=== PATIENT | female | born 1980 | race Caucasian/White ===

== ENCOUNTER 2017-05-17 13:53 | Emergency (ER) | payer OTHER, SELFPAY ==
[2017-05-17] MEDS ORDERED: ISOVUE-370 76%-LOCM 1 ML ONE (13:57)
[2017-05-17 14:51] LABS: BHCG - Serum Negative (NEGATIVE); Pregs Control Background? CLEAR/WHITE (CLR/WHITE); Pregs Control Bar Appear? YES (CONTROL BAR)
[2017-05-17 14:52] LABS: #Lymphocytes 1.7 thou/uL (1.20-3.40); #Monocytes 0.5 thou/uL (0.11-0.59); #Neutrophils 2.5 thou/uL (1.40-6.50); %Basophils 0.4 % (0.0-1.0); %Eosinophils 0.6 % (0.0-10.0); %Lymphocytes 35.5 % (21.0-51.0); %Monocytes 9.6 % (0.0-10.0); Hemoglobin 13.4 g/dL (12.0-16.0); Mean Corpuscular HGB CONC 34.5 g/dL (32.0-36.0); Mean Corpuscular Hemoglobin 29.7 pg (27.0-31.0); Mean Corpuscular Volume 86.1 fl (81.0-99.0); Mean Platelet Volume 8.2 fL (7.4-10.4); Platelet Count 245 thou/uL (130-400); RBC Distribution Width 11.7 % (11.5-14.5); White Blood Cell (WBC) Count 4.7 thou/uL (4.8-10.8)
[2017-05-17 14:58] LABS: ALT (SGPT) 9 U/L (8-55); AST (SGOT) 11 U/L (5-34); Albumin 4.2 g/dL (3.5-5.0); Alkaline Phosphatase 60 U/L (40-150); Anion Gap 12 mmol/L (10-20); BUN (Urea Nitrogen) 16 mg/dL (7.0-18.7); Bilirubin, Total 0.2 mg/dL (0.2-1.2); CK (CPK) 20 U/L (29-168); Calc. Creatinine Clearance 0 mL/min (70-130); Calcium 9.5 mg/dL (7.8-10.44); Carbon Dioxide 24 mmol/L (22-29); Chloride 106 mmol/L (98-107); Estimated GFR-MDRD 75; Globulin 2.9 g/dL (2.4-3.5); Glucose 94 mg/dL (70-105); Lipase 26 U/L (8-78); Potassium 3.8 mmol/L (3.5-5.1); Protein, Total 7.1 g/dL (6.0-8.3); Sodium 138 mmol/L (136-145)
[2017-05-17 15:02] LABS: CKMB 0.2 ng/mL (0-6.6); Troponin I Less than 0.010 ng/mL (< 0.028)
[2017-05-17 15:17] LABS: Thyroid Stimulating Hormone 0.0054 uIU/mL (0.35-4.94)
--- NOTE | 2017-05-17 15:40 | RAD ---
PORTABLE CHEST: Date: 05/17/17 PROVIDED CLINICAL HISTORY: Chest pain. FINDINGS: Cardiac and mediastinal silhouette is within normal limits. Lungs appear clear. There is no pleural f luid or pneumothorax apparent. IMPRESSION: No evidence for an acute cardiopulmonary process. POS: [facility]
--- NOTE | 2017-05-17 16:27 | CT ---
CT PULMONARY ANGIOGRAPH WITH IV CONTRAST AND 3D POSTPROCESSIN05/17/17 HISTORY: 37-year-old female with chest pain, tachycardia. FINDINGS: There is good contrast opacification of the pulmonary artery vasculature without filling defects to s uggest pulmonary embolism. The thoracic aorta is well opacified without aneurysmal dissection. No flu id or pericardial effusions are seen. No pneumothoraces, focal areas of consolidation or lung nodules /masses are identified. No acute osseous abnormalities are noted. IMPRESSION: No CT evidence of pulmonary embolism. POS: [facility]
--- NOTE | 2017-05-24 12:37 | EKG ---
Test Reason : DIAGNOSING PURPOSES Blood Pressure : / mmHG Vent. Rate : 081 BPM Atrial Rate : 081 BPM P-R Int : 116 ms QRS Dur : 078 ms QT Int : 384 ms P-R-T Axes : 047 064 039 degrees QTc Int : 446 ms Normal sinus rhythm Possible Left atrial enlargement Borderline ECG Confirmed by ISAAK DUKES, WILFRIDO ([id number]), continuity editor JS PEACOCK ([id number]) on 05/24/2017 12:36:04 PM Referred By: Confirmed By:WILFRIDO MULLIGAN MD
== END 2017-05-17 16:46 | disposition home or self-care (01) ==
LOC: ERS 13:53
DX: R07.89 Other chest pain (principal); E05.90 Thyrotoxicosis, unspecified without thyrotoxic crisis or storm; E03.9 Hypothyroidism, unspecified; F90.9 Attention-deficit hyperactivity disorder, unspecified type; F32.9 Major depressive disorder, single episode, unspecified; Z87.891 Personal history of nicotine dependence
CPT/HCPCS: 71045; 71275; 80053; 82550; 82553; 83690; 84443; 84484; 84703; 85025; 85379; 93005; 94760; 96360; 96361

== ENCOUNTER 2017-10-02 13:10 | Outpatient (CLI) | payer OTHER ==
--- NOTE | 2017-10-02 15:31 | MRI ---
MRI RIGHT KNEE WITHOUT CONTRAST: HISTORY: Knee hyperextension. COMPARISON: None. FINDINGS: MEDIAL MENISCUS: Intact. There is a meniscal flap at the free edge of medial meniscal body. LATERAL MENISCUS: Intact. ACL and PCL are intact as well as the MCL and LCL. EXTENSOR MECHANISM: Quadriceps tendon, patella, and patella tendon are intact. CARTILAGE: PATELLOFEMORAL COMPARTMENT: High-grade cartilage fissures of the mid patellar apex. No subchondral reactive marrow edema. MEDIAL COMPARTMENT: Intact. LATERAL COMPARTMENT: Intact. There is mild supralateral Hoffa's fat pad edema. There is elongation of the lateral trochlea and th e lateral patellar facets. The PT-TG distance is 11 mm. The trochlea is flattened. IMPRESSION: 1. 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 2. Multifocal high-grade near full-thickness cartilage fissures at the patellar apex. 3. Intact menisci and cruciate ligaments. POS: [facility]
== END 2017-10-02 13:11 | disposition home or self-care (01) ==
LOC: SCSMRI 13:10
PROVIDERS: ATTEND Orthopaedic Surgery
DX: M23.91 Unspecified internal derangement of right knee (principal); M25.861 Other specified joint disorders, right knee

== ENCOUNTER 2017-12-04 13:55 | Emergency (ER) | payer OTHER ==
[2017-12-04] MEDS ORDERED: Proparacaine 0.5% Opth 15 ML BOT ONE (14:32)
[2017-12-04] MEDS ORDERED: diphenhydrAMINE 12.5 MG/5 ML UDCUP ONE (15:22)
[2017-12-04] MEDS ORDERED: Ketorolac Tromethamine 30 MG/ML VIAL ONE (15:22)
[2017-12-04] MEDS ORDERED: Metoclopramide HCl 10 MG/2 ML VIAL ONE (15:22)
[2017-12-04] MEDS ORDERED: diphenhydrAMINE 25 MG CAP ONE (15:26)
[2017-12-04 15:28] LABS: #Eosinphils 0.1 thou/uL (0.0-0.7); #Lymphocytes 1.6 thou/uL (1.20-3.40); #Monocytes 0.4 thou/uL (0.11-0.59); #Neutrophils 2.5 thou/uL (1.40-6.50); %Basophils 0.8 % (0.0-1.0); %Eosinophils 1.5 % (0.0-10.0); %Lymphocytes 34.4 % (21.0-51.0); %Monocytes 9.1 % (0.0-10.0); %Neutrophils 54.2 % (42.0-75.0); Hemoglobin 12.5 g/dL (12.0-16.0); Mean Corpuscular HGB CONC 32.7 g/dL (32.0-36.0); Mean Corpuscular Hemoglobin 28.6 pg (27.0-31.0); Mean Corpuscular Volume 87.4 fL (78.0-98.0); Mean Platelet Volume 7.8 fL (7.4-10.4); Platelet Count 267 thou/uL (130-400); RBC Distribution Width 12.6 % (11.5-14.5); Red Blood Cell (RBC) Count 4.38 mill/uL (4.20-5.40); White Blood Cell (WBC) Count 4.7 thou/uL (4.8-10.8)
[2017-12-04 15:47] LABS: ALT (SGPT) 12 U/L (8-55); AST (SGOT) 17 U/L (5-34); Albumin 4.1 g/dL (3.5-5.0); Alkaline Phosphatase 56 U/L (40-150); Anion Gap 10 mmol/L (10-20); BUN (Urea Nitrogen) 13 mg/dL (7.0-18.7); Bilirubin, Total 0.2 mg/dL (0.2-1.2); Calc. Creatinine Clearance 0 mL/min (70-130); Carbon Dioxide 27 mmol/L (22-29); Chloride 108 mmol/L (98-107); Estimated GFR-MDRD 74; Globulin 3.1 g/dL (2.4-3.5); Glucose 88 mg/dL (70-105); Potassium 3.8 mmol/L (3.5-5.1); Protein, Total 7.2 g/dL (6.0-8.3); Sodium 141 mmol/L (136-145)
== END 2017-12-04 17:06 | disposition home or self-care (01) ==
LOC: ERS 13:55
DX: E05.90 Thyrotoxicosis, unspecified without thyrotoxic crisis or storm (principal); R51 Headache; F90.0 Attention-deficit hyperactivity disorder, predominantly inattentive type; E03.9 Hypothyroidism, unspecified; Z79.899 Other long term (current) drug therapy
CPT/HCPCS: 80053; 84443; 85025; 96365; 96375; J1885; J2765

== ENCOUNTER 2018-06-28 18:08 | Emergency (ER) | payer OTHER ==
[2018-06-28] MEDS ORDERED: Ketorolac Tromethamine 30 MG/ML VIAL ONE (18:43)
[2018-06-28] MEDS ORDERED: Morphine 4 MG/ML VIAL ONE (18:43)
[2018-06-28] MEDS ORDERED: predniSONE 20 MG TAB ONE (18:43)
[2018-06-28 19:00] LABS: Bilirubin Small (Negative); Blood, Urine Trace (Negative); Clarity Hazy (Clear); Glucose, Urine (Dipstick) Negative (Negative); Leukocyte Negative (Negative); Nitrite Negative (Negative); Protein, Urine (Dipstick) 30 mg/dL (Neg-Trace); Specific Gravity, Urine 1.028 (1.002-1.036); pH, Urine 5.5 (5.0-9.0)
[2018-06-28 19:01] LABS: Bacteria/HPF 2+ HPF (None Seen); RBC/HPF 0-3 HPF (0-3); WBC/HPF None Seen HPF (0-3)
[2018-06-28 19:02] LABS: Pregnancy Test - Urine (BHCG) Negative (Negative); Pregu Control Background? CLEAR/WHITE (CLR/WHITE); Pregu Control Bar Appear? YES (CONTROL BAR); Specific Gravity 1.028 (1.002-1.036)
== END 2018-06-28 19:39 | disposition home or self-care (01) ==
LOC: SCSER 18:08
DX: S33.5XXA Sprain of ligaments of lumbar spine, initial encounter (principal); E05.00 Thyrotoxicosis with diffuse goiter without thyrotoxic crisis or storm; E03.9 Hypothyroidism, unspecified; F32.9 Major depressive disorder, single episode, unspecified; F90.9 Attention-deficit hyperactivity disorder, unspecified type; X58.XXXA Exposure to other specified factors, initial encounter
CPT/HCPCS: 81003; 81015; 81025; 87086; 96372; J1885; J2270; J7512